=== PATIENT | male | born 1965 | race Caucasian/White ===

== ENCOUNTER → 2019-12-08 09:20 | Outpatient (BNVA) | payer OTHER, SELFPAY | PROVIDERS: PCP Nurse Practitioner Family; Referring Provider Nurse Practitioner Family; Visit Provider Nurse Practitioner Family | DX: G47.33 Obstructive sleep apnea (adult) (pediatric) (principal) | CPT/HCPCS: 99214 ==

== ENCOUNTER 2019-12-22 16:09 | Emergency (ER) | payer OTHER, SELFPAY ==
--- NOTE | 2019-12-22 | ECG_ITS ---
Test Reason : CHEST PAIN Blood Pressure : / mmHG Vent. Rate : 098 BPM Atrial Rate : 098 BPM P-R Int : 130 ms QRS Dur : 084 ms QT Int : 356 ms P-R-T Axes : 027 040 026 degrees QTc Int : 454 ms Normal sinus rhythm RSR' or QR pattern in V1 suggests right ventricular conduction delay Nonspecific ST and T wave abnormality Abnormal ECG When compared with ECG of 15-AUG-2018 11:02, T wave inversion more evident in Inferior leads ST more depressed Anterolateral leads Clinical Correlation Advised Referred By: Generic ED Physician Electronically Signed By:EDIN ENGEL MD
[2019-12-22 18:13] VITALS: BP 144/88; PULSE 77; RESP 16; TEMP 36.9; O2SAT 98; BMI 36.5
--- NOTE | 2019-12-22 18:59 | ED_ITS ---
HPI - Abdominal Pain General Chief Complaint: Chest Pain Stated Complaint: lower abd pain Time Seen by Provider: 12/22/19 18:56 Source: patient Mode of arrival: ambulatory Limitations: no limitations History of Present Illness HPI narrative: patient's history of kidney stone last stone was several years ago woke up at 03:00 with left lower quadrant pain stabbing in nature constant with intermittent flare up, associated with nausea no hematuria. No diarrhea no vomiting patient also complain of some midsternal pain earlier today which is similar in the past noncardiac. Patient denied any flank pain or problems in urinating MD elicited complaint: abdominal pain Pertinent past history: kidney stones Onset (ago): day(s) (1) Pain Consistency: constant Location: LLQ Severity: moderate Quality: stabbing Radiation: LLQ Migration to: no migration Exacerbating factors: nothing Relieving factors: nothing Associated symptoms: nausea Related Data Home Medications Medication Instructions Recorded Confirmed clotrimazole-betamethasone 1 applic TOPICAL Q OTHER DAY PRN 12/08/19 12/08/19 %-0.05 % topical cream docusate sodium 100 mg capsule 0 mg PO 12/08/19 12/08/19 famotidine 20 mg tablet 0 mg PO 12/08/19 12/08/19 gabapentin 300 mg capsule 900 mg PO TID PRN 12/08/19 12/08/19 hydrochlorothiazide 12.5 mg tablet 12.5 mg PO DAILY 12/08/19 12/08/19 ibuprofen 800 mg tablet 0 mg PO 12/08/19 12/08/19 lisinopril 40 mg tablet 40 mg PO DAILY 12/08/19 12/08/19 metformin 500 mg tablet 500 mg PO BID 12/08/19 12/08/19 pantoprazole 40 mg tablet,delayed 0 mg PO 12/08/19 12/08/19 release sucralfate 1 gram tablet 0 g PO 12/08/19 12/08/19 Previous Rx's Medication Instructions Recorded baclofen 10 mg tablet 10 mg PO TID 30 Days #210 tab 11/20/19 clonazepam 0.5 mg tablet 0.5 mg PO .COMPLEX 30 Days #60 tab 12/08/19 oxycodone 5 mg PO Q6H PRN #20 tab 12/22/19 Allergies Allergy/AdvReac Type Severity Reaction Status Date / Time sulfamethoxazole Allergy Mild rash Verified 12/08/19 09:55 [From Bactrim] trimethoprim [From Bactrim] Allergy Mild rash Verified 12/08/19 09:55 shellfish derived Allergy rash Verified 12/08/19 09:52 IV contrast Allergy Severe respiratory Uncoded 12/08/19 09:51 distress Review of Systems Review of Systems REVIEW OF SYSTEMS: Pertinent positives and negatives are stated above in the history. GEN: no fevers, chills, fatigue HEENT: no nasal congestion, sore throat, ear pain NEURO: no headache, dizziness, focal weakness PULM: no cough, shortness of breath CV: no palpitations, LE edema ABD: no vomiting, diarrhea : no dysuria, urgency, frequency SKIN: no rash ROS otherwise negative x 10 Physical Exam Vital Signs: Vital Signs: Vital Signs Temp Pulse Resp BP Pulse Ox 12/22/19 20:49 81 16 126/71 96 12/22/19 18:13 98.5 F 77 16 144/88 H 98 Body Mass Index 36.5 VITAL SIGNS: Reviewed. GENERAL: Well developed, well nourished, in mild distress. HEAD: Normocephalic/atraumatic, EYES: PERRLA No pallor/icterus noted EARS: Ext canals without abnormality NOSE: Nares patent bilateral OROPHARYNX: Oral mucosa moist no oral lesions NECK: Supple, no adenopathy LUNGS: Normal breath sounds. No adventitious sounds or accessory muscle use CARDIOVASCULAR: Regular rate and rhythm without noted murmurs, no JVD or lower extremity edema. ABDOMEN: Soft, moderate tenderness left lower quadrant, non-distended with bowel sounds. No rigidity. No guarding. No palpable masses or hernias noted MUSCULOSKELETAL: No tenderness, deformities, no CVA tenderness EXTREMITIES: No cyanosis or edema. SKIN: no rashes, ulcerations, jaundice, pallor, or petechiae NEUROLOGIC: Alert and oriented x 3. Strength and sensation to light touch were grossly intact Course Course Course Narrative: CT/CT abdomen pelvis wo con IMPRESSION: 1. A cause for the patient's left lower quadrant pain is not seen. 2. Abnormal left kidney with appearances suggestive of congenital UPJ obstruction. 3. Hepatic steatosis. 4. Incidentally noted left renal cyst, calcific atherosclerotic changes and postoperative changes at L5-S1. 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 otherwise labs urine negative etiology of pain is not very clear likely renal colic patient advised to follow-up with urologist and drink plenty of fluids MDM - Abdominal Pain Lab Data Result diagrams: 12/22/19 19:17 12/22/19 19:17 Labs: Lab Results 12/22/19 12/22/19 12/22/19 Range/Units 19:17 19:17 19:17 WBC 9.4 (4.8-10.8) X10*3/uL RBC 4.71 (4.60-5.80) X10*6/uL Hgb 12.5 L (14.0-18.0) g/dl Hct 40.2 L (42-52) % MCV 85.4 (80-98) fL MCH 26.5 L (27.0-33.0) pg MCHC 31.1 (31.0-36.0) g/dl RDW 14.3 (11.0-16.0) % Plt Count 281 (160-400) X10*3/uL MPV 9.8 (9.4-12.4) fL Immature Gran % (Auto) 0.7 H (0.0-0.4) % Neut % (Auto) 49.8 (45-73) % Lymph % (Auto) 41.6 H (20-40) % Brown % (Auto) 6.2 (2-11) % Eos % (Auto) 1.2 (0-4) % Baso % (Auto) 0.5 (0-2) % Lymph # (Auto) 3.9 (1.2-4.9) X10*3/uL Brown # (Auto) 0.6 (0.1-1.2) X10*3/uL Eos # (Auto) 0.1 (0.0-0.4) X10*3/uL Baso # (Auto) 0.1 (0.0-0.2) X10*3/uL Abs Immat Gran (auto) 0.07 H (0.00-0.03) X10*3/uL Absolute Neuts (auto) 4.7 (2.0-8.3) X10*3/uL Absolute Nucleated RBC 0.000 (0.0-0.012) X10*3/uL Nucleated RBC % (auto) 0.0 (0.0-0.2) /100WBC Sodium 138 (135-145) mmol/L Potassium 4.6 (3.3-5.1) mmol/l Chloride 96 (96-108) mmol/L Carbon Dioxide 30 H (22-29) mmol/L Anion Gap 17 (12-20) BUN 14 (9-16) mg/dL Creatinine 0.89 (0.5-1.4) mg/dL Estim Creat Clear Calc 116.1 Estimated GFR > 60 Random Glucose 115 (60-115) mg/dL Calcium 9.6 (8.4-10.2) mg/dL Total Bilirubin 0.5 (0.0-1.0) mg/dL Direct Bilirubin < 0.2 (0.0-0.5) mg/dL AST 22 (5-37) U/L ALT 35 (0-40) U/L Alkaline Phosphatase 95 (39-117) U/L Troponin I High Sens < 3.5 (<3.5-35.0) ng/L Total Protein 7.9 (6.5-8.0) g/dL Albumin 4.7 (3.5-5.0) g/dL Lipase 16 (8-78) U/L Urine Color Urine Appearance Urine pH (5.0-8.0) Ur Specific [place] (1.005-1.025) Urine Protein (NEG-TRACE) MG/DL Urine Glucose (UA) (NEG) MG/DL Urine Ketones (NEG) MG/DL Urine Blood (NEG) Urine Nitrite (NEG) Ur Leukocyte Esterase (NEG) 12/22/19 Range/Units 19:17 WBC (4.8-10.8) X10*3/uL RBC (4.60-5.80) X10*6/uL Hgb (14.0-18.0) g/dl Hct (42-52) % MCV (80-98) fL MCH (27.0-33.0) pg MCHC (31.0-36.0) g/dl RDW (11.0-16.0) % Plt Count (160-400) X10*3/uL MPV (9.4-12.4) fL Immature Gran % (Auto) (0.0-0.4) % Neut % (Auto) (45-73) % Lymph % (Auto) (20-40) % Brown % (Auto) (2-11) % Eos % (Auto) (0-4) % Baso % (Auto) (0-2) % Lymph # (Auto) (1.2-4.9) X10*3/uL Brown # (Auto) (0.1-1.2) X10*3/uL Eos # (Auto) (0.0-0.4) X10*3/uL Baso # (Auto) (0.0-0.2) X10*3/uL Abs Immat Gran (auto) (0.00-0.03) X10*3/uL Absolute Neuts (auto) (2.0-8.3) X10*3/uL Absolute Nucleated RBC (0.0-0.012) X10*3/uL Nucleated RBC % (auto) (0.0-0.2) /100WBC Sodium (135-145) mmol/L Potassium (3.3-5.1) mmol/l Chloride (96-108) mmol/L Carbon Dioxide (22-29) mmol/L Anion Gap (12-20) BUN (9-16) mg/dL Creatinine (0.5-1.4) mg/dL Estim Creat Clear Calc Estimated GFR Random Glucose (60-115) mg/dL Calcium (8.4-10.2) mg/dL Total Bilirubin (0.0-1.0) mg/dL Direct Bilirubin (0.0-0.5) mg/dL AST (5-37) U/L ALT (0-40) U/L Alkaline Phosphatase (39-117) U/L Troponin I High Sens (<3.5-35.0) ng/L Total Protein (6.5-8.0) g/dL Albumin (3.5-5.0) g/dL Lipase (8-78) U/L Urine Color YELLOW Urine Appearance CLEAR Urine pH 6.5 (5.0-8.0) Ur Specific [place] 1.020 (1.005-1.025) Urine Protein NEG (NEG-TRACE) MG/DL Urine Glucose (UA) NEG (NEG) MG/DL Urine Ketones NEG (NEG) MG/DL Urine Blood NEG (NEG) Urine Nitrite NEG (NEG) Ur Leukocyte Esterase NEG (NEG) Discharge Plan Discharge Clinical Impression: Renal colic on left side Patient Disposition: Home, Self-Care Instructions: Renal Colic (ED) Additional Instructions: drink plenty of fluids. Take pain medication as advised and follow-up with urologist do not see any stone at this time Prescriptions: New oxycodone 5 mg tablet 5 mg PO Q6H PRN (Reason: pain) Qty: 20 RF: 0 No Action baclofen 10 mg tablet 10 mg PO TID 30 Days Qty: 210 RF: 3 sucralfate 1 gram tablet 0 g PO RF: 0 hydrochlorothiazide 12.5 mg tablet 12.5 mg PO DAILY RF: 0 gabapentin 300 mg capsule 900 mg PO TID PRNRF: 0 docusate sodium 100 mg capsule 0 mg PO RF: 0 clotrimazole-betamethasone 1-0.05 % cream topical Q OTHER DAY PRNRF: 0 famotidine 20 mg tablet 0 mg PO RF: 0 metformin 500 mg tablet 500 mg PO BID RF: 0 pantoprazole 40 mg tablet,delayed release (DR/EC) 0 mg PO RF: 0 lisinopril 40 mg tablet 40 mg PO DAILY RF: 0 ibuprofen 800 mg tablet 0 mg PO RF: 0 clonazepam 0.5 mg tablet 0.5 mg PO .COMPLEX 30 Days Qty: 60 RF: 2 Referrals: Clinton Marcelo MD [Physician] - 1 week [facility] Social History Social History Advance Directives: No Advance Directives Information Provided: No
--- NOTE | 2019-12-22 19:12 | CT_ITS ---
EXAMINATION: CT ABDOMEN AND PELVIS WITHOUT CONTRAST CLINICAL INFORMATION: Left lower quadrant pain. COMPARISON: None TECHNIQUE: Multidetector volumetric imaging was performed from the superior aspect of the liver through the pubic symphysis. Sagittal and coronal reformatted images were obtained on the technologist's workstation. This CT examination was performed using dose optimization techniques as appropriate, variously including the following: *Automated exposure control. *Adjustment of mA and/or kV according to patient size (this includes techniques or standardized protocols for targeted exams where dose is matched to indication/reason for exam; i.e. extremities or head). *Use of iterative reconstruction technique. DLP: 877 mGy-cm FINDINGS: LUNG BASES: The visualized lung bases are unremarkable. LIVER, GALLBLADDER, AND BILIARY TREE: Hepatic steatosis is present with some focal fatty sparing around the gallbladder. No focal liver mass or bile duct dilatation is seen. The gallbladder is unremarkable with no evidence of radiopaque gallstones, gallbladder wall thickening, or obvious pericholecystic inflammatory changes. PANCREAS: Unremarkable. SPLEEN: A splenule is present. ADRENAL GLANDS: Unremarkable. KIDNEYS AND URETERS: Right: The right kidney and ureter appear normal. Left: The left renal pelvis is dilated and there is some mild caliectasis with narrowing at the ureteropelvic junction. Findings are fairly characteristic of a congenital UP junction-type of obstruction. Hypoattenuating 1.5 cm left midpole renal cortical mass is seen which measures just under water density and is most likely a cyst. No solid renal masses are seen. Left ureter is normal. BLADDER: Empty. GASTROINTESTINAL TRACT: The small and large bowel are unremarkable. The appendix is unremarkable. ABDOMINAL WALL: No significant hernia is appreciated. LYMPH NODES: Normal. VASCULAR: Aortoiliac calcific atherosclerotic changes are present. No aneurysms. PELVIC VISCERA: Prostate and seminal vesicles appear normal. OSSEOUS STRUCTURES: Degenerative changes are present in the spine. There has been posterior fusion with pedicular screws at L5-S1. No bony destructive lesions seen. CT/CT abdomen pelvis wo con IMPRESSION: 1. A cause for the patient's left lower quadrant pain is not seen. 2. Abnormal left kidney with appearances suggestive of congenital UPJ obstruction. 3. Hepatic steatosis. 4. Incidentally noted left renal cyst, calcific atherosclerotic changes and postoperative changes at L5-S1.
[2019-12-22] MEDS: 0.9 % Sodium Chloride 1,000 ML 999 ML IVCONT (19:19)
[2019-12-22 19:31] LABS: Basophils Absolute Auto 0.1 X10*3/uL (0.0-0.2); Basophils Percent Auto 0.5 % (0-2); Eosinophils Absolute Auto 0.1 X10*3/uL (0.0-0.4); Eosinophils Percent Auto 1.2 % (0-4); Hematocrit 40.2 % (42-52); Hemoglobin 12.5 g/dl (14.0-18.0); Imm Gran Abs Auto 0.07 X10*3/uL (0.00-0.03); Imm Gran Pct Auto 0.7 % (0.0-0.4); Lymphocytes Absolute Auto 3.9 X10*3/uL (1.2-4.9); Lymphocytes Percent Auto 41.6 % (20-40); MANUAL DIFF FLAG NO; Mean Corpuscular HGB Conc 31.1 g/dl (31.0-36.0); Mean Corpuscular Hemoglobin 26.5 pg (27.0-33.0); Mean Corpuscular Volume 85.4 fL (80-98); Mean Platelet Volume 9.8 fL (9.4-12.4); Monocytes Absolute Auto 0.6 X10*3/uL (0.1-1.2); Monocytes Percent Auto 6.2 % (2-11); Neutrophils Absolute Auto 4.7 X10*3/uL (2.0-8.3); Neutrophils Percent Auto 49.8 % (45-73); Platelet Count 281 X10*3/uL (160-400); Red Blood Count 4.71 X10*6/uL (4.60-5.80); Red Cell Distribution Width 14.3 % (11.0-16.0); White Blood Count 9.4 X10*3/uL (4.8-10.8)
[2019-12-22 19:38] LABS: Glucose Urine UA NEG (NEG); Leukocyte Esterase Urine NEG (NEG); Nitrite Urine NEG (NEG); PH 6.5 (5.0-8.0); Urine Blood NEG (NEG); Urine Ketones NEG (NEG); Urine Protein NEG (NEG-TRACE)
[2019-12-22 19:43] LABS: Appearance Urine CLEAR; Color Urine YELLOW
[2019-12-22 20:01] LABS: Alanine Aminotransferase 35 U/L (0-40); Albumin Level 4.7 g/dL (3.5-5.0); Alkaline Phosphatase 95 U/L (39-117); Anion Gap 17 (12-20); Aspartate Amino Transferase 22 U/L (5-37); Bilirubin Direct < 0.2 mg/dL (0.0-0.5); Bilirubin Total 0.5 mg/dL (0.0-1.0); Blood Urea Nitrogen 14 mg/dL (9-16); Calcium 9.6 mg/dL (8.4-10.2); Carbon Dioxide 30 mmol/L (22-29); Chloride 96 mmol/L (96-108); Creatinine Clr Calc Pharmacy 116.1; Estimated Glomerular Filt Rate > 60; Glucose Random 115 mg/dL (60-115); Lipase 16 U/L (8-78); Potassium 4.6 mmol/l (3.3-5.1); Sodium 138 mmol/L (135-145); Total Protein 7.9 g/dL (6.5-8.0)
[2019-12-22 20:07] LABS: Troponin-I High Sensitivity < 3.5 ng/L (<3.5-35.0)
[2019-12-22] MEDS: Ketorolac Tromethamine 30 MG/ML VIAL IVPUSH (20:44)
[2019-12-22 20:49] VITALS: BP 126/71; PULSE 81; RESP 16; O2SAT 96
[2019-12-22 20:59] VITALS: BP 126/71; PULSE 77; RESP 16; TEMP 36.4; O2SAT 99
== END 2019-12-22 21:16 | disposition home or self-care (01) ==
PROVIDERS: Emergency Provider Internal Medicine; PCP Internal Medicine
DX: N23 Unspecified renal colic (principal); R07.9 Chest pain, unspecified; Z79.899 Other long term (current) drug therapy
CPT/HCPCS: 36415; 74176; 80048; 80076; 81003; 83690; 84484; 85025; 93005; 96361; 96374; 99283; 99284; J1885

== ENCOUNTER → 2020-03-01 09:32 | Outpatient (BNVA) | payer MEDICARE, MEDICAID, SELFPAY | PROVIDERS: PCP Internal Medicine; Visit Provider Nurse Practitioner Family | DX: Z76.89 Persons encountering health services in other specified circumstances (principal) | CPT/HCPCS: Q3014 ==

== ENCOUNTER → 2020-05-31 10:12 | Outpatient (BNVA) | payer MEDICARE, OTHER, SELFPAY | PROVIDERS: PCP Internal Medicine; Visit Provider Nurse Practitioner Family | DX: Z13.89 Encounter for screening for other disorder (principal) | CPT/HCPCS: Q3014 ==

== ENCOUNTER → 2020-09-27 08:44 | Outpatient (BNVA) | payer OTHER, SELFPAY | PROVIDERS: PCP Internal Medicine; Visit Provider Nurse Practitioner Family | DX: G47.33 Obstructive sleep apnea (adult) (pediatric) (principal); G47.00 Insomnia, unspecified | CPT/HCPCS: Q3014 ==

== ENCOUNTER → 2021-01-31 09:09 | Outpatient (BNVA) | payer OTHER, SELFPAY | PROVIDERS: PCP Internal Medicine; Referring Provider Internal Medicine; Visit Provider Nurse Practitioner Family | DX: G47.33 Obstructive sleep apnea (adult) (pediatric) (principal); G47.00 Insomnia, unspecified | CPT/HCPCS: Q3014 ==

== ENCOUNTER → 2021-06-19 08:55 | Outpatient (BNVA) | payer OTHER, SELFPAY | PROVIDERS: PCP Internal Medicine; Visit Provider Nurse Practitioner Family | DX: Z13.89 Encounter for screening for other disorder (principal) ==

== ENCOUNTER 2021-09-12 11:37 | Outpatient (REF) | payer OTHER, SELFPAY ==
[2021-09-12 11:51] LABS: MANUAL DIFF FLAG NO
[2021-09-12 12:25] LABS: Basophils Percent Auto 0.5 % (0-2); Eosinophils Absolute Auto 0.1 X10*3/uL (0.0-0.4); Eosinophils Percent Auto 0.8 % (0-4); Hematocrit 37.9 % (42.0-52.0); Hemoglobin 12.4 g/dl (14.0-18.0); Imm Gran Abs Auto 0.07 X10*3/uL (0.00-0.03); Imm Gran Pct Auto 0.8 % (0.0-0.4); Lymphocytes Absolute Auto 2.6 X10*3/uL (1.2-4.9); Lymphocytes Percent Auto 30.1 % (20-40); Mean Corpuscular HGB Conc 32.7 g/dl (31.0-36.0); Mean Corpuscular Hemoglobin 27.6 pg (27.0-33.0); Mean Corpuscular Volume 84.4 fL (80.0-98.0); Mean Platelet Volume 10.4 fL (9.4-12.4); Monocytes Absolute Auto 0.5 X10*3/uL (0.1-1.2); Monocytes Percent Auto 5.9 % (2-11); Neutrophils Absolute Auto 5.4 x10*3/uL (2.0-8.3); Neutrophils Percent Auto 61.9 % (45-73); Platelet Count 314 X10*3/uL (160-400); Red Blood Count 4.49 X10*6/uL (4.60-5.80); Red Cell Distribution Width 13.7 % (11.0-16.0); White Blood Count 8.7 X10*3/uL (4.8-10.8)
[2021-09-12 13:20] LABS: Anion Gap 19 (12-20); Blood Urea Nitrogen 22 mg/dL (9-16); Calcium 10.3 mg/dL (8.4-10.2); Carbon Dioxide 26 mmol/L (22-29); Chloride 96 mmol/L (96-108); Estimated Glomerular Filt Rate 53; Glucose Random 441 mg/dL (60-115); Potassium 5.7 mmol/L (3.3-5.1); Sodium 135 mmol/L (135-145)
[2021-09-12 15:43] LABS: Estimated Average Glucose 329 mg/dL; Hemoglobin A1c % 13.1 %
[2021-09-12 15:59] LABS: Creatinine Urine 60.45 mg/dL; Microalbum/Creatinine Ratio Ur 23.1 ug/mg cr
== END 2021-09-12 11:38 | disposition home or self-care (01) ==
LOC: HO.LAB 11:37
PROVIDERS: PCP Internal Medicine; Visit Provider Internal Medicine
DX: Z13.0 Encounter for screening for diseases of the blood and blood-forming organs and certain disorders involving the immune mechanism (principal); E03.9 Hypothyroidism, unspecified; E11.69 Type 2 diabetes mellitus with other specified complication; E66.01 Morbid (severe) obesity due to excess calories; R51.9 Headache, unspecified
CPT/HCPCS: 36415; 80048; 82043; 83036; 84443; 85025

== ENCOUNTER → 2021-11-07 09:00 | Outpatient (BNVA) | payer OTHER, SELFPAY | PROVIDERS: PCP Internal Medicine; Visit Provider Dietitian, Registered | DX: E11.69 Type 2 diabetes mellitus with other specified complication (principal); E66.9 Obesity, unspecified; Z68.33 Body mass index [BMI] 33.0-33.9, adult | CPT/HCPCS: 97802 ==

== ENCOUNTER 2022-11-23 08:32 | Outpatient (AMB) | payer OTHER, SELFPAY ==
--- NOTE | 2022-11-23 08:34 | MHC.OFFVIS ---
Intake Vital Signs 11/23/22 08:52 Height 5 ft 8 in Weight 190 lb BMI 28.9 BP 140/80 H Blood Pressure Location Lt brachial Position Sitting Respiration 16 Pulse 96 Pulse Source Pulse Oximeter Pulse Oximetry (%) 98 Oxygen Delivery Method Room Air Intake Visit Reasons: dorsalgia Allergies sulfamethoxazole [From Bactrim] Allergy (Mild, Verified 11/23/22 08:36) rash trimethoprim [From Bactrim] Allergy (Mild, Verified 11/23/22 08:36) rash Sulfa (Sulfonamide Antibiotics) Allergy (Unknown, Verified 11/23/22 08:36) unknown shellfish derived Allergy (Verified 11/23/22 08:36) rash IV contrast Allergy (Severe, Uncoded 12/22/21 08:45) respiratory distress Codeine Phosphate Allergy (Unknown, Uncoded 12/22/21 08:45) unknown IV contrast Dye Allergy (Unknown, Uncoded 12/22/21 08:45) unknown HPI HPI Comments History of Present Illness Details Raffy is a very pleasant 57 year old male who present to the office today for evaluation and management of his chronic back pain. Patient reports that he has been suffering with pain in the back for greater than 10 years. He has hx of lumbar fusion performed in [place], he is closely followed by neurosurgeon and was told he will need a second fusion but has not been scheduled. Patient reports that he has been under the care of a pain management doctor who prescribed him mag ox and keppra for muscle twitching, he is also taking topiramate that was prescribed by neurology at [facility]. Patient states his pain management doctor has left the practice, he contacted his PCP to take over prescribing his keppra, topiramate and mag ox but was told he needs to have a landscape painter take this over. Patient has received multiple injections in his back previously by multiple specialists. He found them painful at times and of no benefit of pain relief. I will deal with the pain until I have surgery again . He is not interested in interventional management at this time. Patient reports I came here because my primary told me pain management needs to take over prescribing these medications . [facility] Surgical History No pertinent past surgical history Family History Other No pertinent family history Social History (Reviewed 12/22/21 @ 08:43 by GILA [place] Housing: Condominium Patient Tobacco Use Status: Never used Tobacco e-Cigarette/Vaping Use: Never Used Second Hand Smoke Exposure: No service: No Current occupational status: employed Cognitive needs: Yes ([employer]) Hearing needs: No Vision needs: No Review of Systems Const All systems reviewed & are unremarkable except as noted in HPI and below Physical Exam Vital Signs: Last Vital Signs Pulse 96 11/23/22 08:52 Resp 16 11/23/22 08:52 BP 140/80 H 11/23/22 08:52 Pulse Ox 98 11/23/22 08:52 Oxygen Delivery Method Room Air 11/23/22 08:52 BMI result Body Mass Index 28.9 General: awake, alert, oriented. Answers questions appropriately. Fully engaged in examination. Skin: warm, dry, intact HEENT: Normocephalic. Hearing intact. Cardiac: External chest normal in appearance. Respiratory: No cough, audible wheezing or stridor. Abdomen: without gross distension. MS: No obvious swelling or deformities. Able to transition from sit to stand unassisted. Ambulates with use of a cane Neurological: Oriented to person, place, time and situation. Thought process intact. Psychiatric: Appropriate mood and affect. Good judgment and insight. Assessment & Plan Assessment & Plan (1) Chronic back pain: Code(s): M54.9 - Dorsalgia, unspecified; G89.29 - Other chronic pain (2) Post laminectomy syndrome: Code(s): M96.1 - Postlaminectomy syndrome, not elsewhere classified (3) Migraine: Code(s): G43.909 - Migraine, unspecified, not intractable, without status migrainosus Plan Raffy is a very pleasant 57 year old male who presented today requesting our office take over prescribing his keppra, topamax and mag oxide. He suffers from chronic back pain and post laminectomy syndrome but adamantly declines interventional treatment at this time. Lengthy discussion with patient regarding current request for refills of his medications. Patient reports Topamax was prescribed by neurology at [facility], he was advised to schedule an appt with their office for follow up and to obtain refills of this medication. Keppra should also be managed by specialty office that focuses on antiseizure medication, which is not pain management, discuss with neurology at follow up visit. Patient verbalizes understanding and agrees with plan. He will follow up with neurology. He was advised to contact our office to schedule a follow up if he would like to proceed with interventional management of his back pain. Coding Level of Care Code New Pt Level 4 (90762) Diagnoses Chronic back pain M54.9; G89.29 Post laminectomy syndrome M96.1 Migraine G43.909
[2022-11-23 08:52] VITALS: BP 140/80; PULSE 96; RESP 16; O2SAT 98; BMI 28.9
== END 2022-11-23 09:20 | disposition home or self-care (01) ==
PROVIDERS: PCP Internal Medicine; Visit Provider Registered Nurse Emergency
DX: M54.9 Dorsalgia, unspecified (principal); G89.29 Other chronic pain; M96.1 Postlaminectomy syndrome, not elsewhere classified; G43.909 Migraine, unspecified, not intractable, without status migrainosus
CPT/HCPCS: 99203

== ENCOUNTER → 2022-11-23 08:32 | Outpatient (BNVA) | payer OTHER, SELFPAY | PROVIDERS: PCP Internal Medicine; Visit Provider Registered Nurse Emergency ==

== ENCOUNTER 2024-01-01 08:48 | Outpatient (AMB) | payer OTHER, SELFPAY ==
[2024-01-01 08:50] VITALS: BP 130/72; PULSE 80; O2SAT 97; BMI 29.5
--- NOTE | 2024-01-01 08:50 | MHC.PC.OV ---
Vital Signs 01/01/24 08:50 Height 5 ft 8 in Weight 194 lb BMI 29.5 BP 130/72 Blood Pressure Location Lt brachial Position Sitting Pulse 80 Pulse Source Pulse Oximeter Pulse Oximetry (%) 97 Oxygen Delivery Method Room Air Intake Visit Reasons: DM Exceptional Children Teacher Required: No Accompanied by: Self / Same As Patient Allergies sulfamethoxazole [From Bactrim] Allergy (Mild, Verified 01/01/24 08:56) rash trimethoprim [From Bactrim] Allergy (Mild, Verified 01/01/24 08:56) rash Sulfa (Sulfonamide Antibiotics) Allergy (Unknown, Verified 01/01/24 08:56) unknown shellfish derived Allergy (Verified 01/01/24 08:56) rash IV contrast Allergy (Severe, Uncoded 01/01/24 08:56) respiratory distress Codeine Phosphate Allergy (Unknown, Uncoded 01/01/24 08:56) unknown IV contrast Dye Allergy (Unknown, Uncoded 01/01/24 08:56) unknown Medication List - Last Reconciled 01/02/24 by Roel Dozier MD acetaminophen 650 mg (2 x 325 mg) PO Q6H PRN atorvastatin 20 mg PO DAILY back brace As directed [back support pillow As directed] baclofen 10 mg PO 7 times a day; blood sugar diagnostic (ROVOP Blood Glucose System strips) As directed blood sugar diagnostic (ROVOP TALK test strips) USE DIRECTED UP TO 8 TIMES A DAY bupropion HCl XL 300 mg PO QAM dapagliflozin propanediol (Farxiga) 10 mg PO DAILY [Diabetic shoes As directed] docusate sodium 200 mg (2 x 100 mg) PO BID 90 days famotidine 20 mg PO DAILY flash glucose scanning reader (FreeStyle Kizzy 2 [place]) As directed flash glucose sensor (FreeStyle Kizzy 2 Sensor kit) As directed gabapentin 900 mg (3 x 300 mg) PO TID PRN ibuprofen 400 mg PO Q6H PRN lancets (ROVOP Safety Lancet) As directed levetiracetam 250 mg PO BID lisinopril 20 mg PO DAILY magnesium oxide 400 mg PO DAILY methadone 110 mg PO BID miscellaneous medical supply 1 ea miscellaneous .five times a day [neck support pillow As directed] pantoprazole 40 mg PO DAILY sucralfate 1 g PO BID tadalafil (Cialis) 10 mg PO DAILY PRN tirzepatide (Mounjaro) mg subcut topiramate 50 mg PO DAILY Tobacco use date assessed: 01/01/24 Dental Screening Dental Screen Date: 01/01/24 Did you have a dental visit in the last 12 months?: Yes Did you have a dental problem in the last 6 months where you did not have access to dental care?: No Was dental information given to patient?: Patient has dentist HPI DM HPI Details DM in good control; sees endo in [place] [facility] Surgical History No pertinent past surgical history Family History Other No pertinent family history [facility] Patient Tobacco Use Status: Never used Tobacco Tobacco use type: Cigarette e-Cigarette/Vaping Use: Never Used Second Hand Smoke Exposure: No service: No Current occupational status: employed Cognitive needs: Yes ([employer]) Hearing needs: No Vision needs: No Questionnaire PHQ-9 Over the last 2 weeks, how often have you been bothered by any of the following problems? 1. Little interest or pleasure in doing things: not at all 2. Feeling down, depressed, or hopeless: not at all 3. Trouble falling or staying asleep, or sleeping too much: not at all 4. Feeling tired or having little energy: not at all 5. Poor appetite or overeating: not at all 6. Feeling bad about yourself - or that you are a failure or have let yourself or your family down: not at all 7. Trouble concentrating on things, such as reading the newspaper or watching television: not at all 8. Moving or speaking so slowly that other people could have noticed. Or the opposite - being so fidgety or restless that you have been moving around a lot more than usual: not at all 9. Thoughts that you would be better off or of hurting yourself in some way: not at all Total score: 0 Depression Screening Interpretation: Negative Depression Screening Done: Yes 23258 - PHQ-9 Billing: Yes Source: Developed by Drs. Dillon Bergeron, Elizabeth Guillen, Hussein Stack and colleagues, with an educational sixto from [employer]. Thrive Questionnaire Date Thrive assessed: 01/01/24 I am a: Patient What is your living situation today?: I have a steady place to live THRIVE Score: 0 AUDIT C Alcohol Use Questionnaire (AUDIT-C) 1. How often do you have a drink containing alcohol?: Never 3. How often do you have six or more drinks on one occasion?: Never Total Score: 0 UDAY-7 AMB Questionnaire UDAY-7 Date UDAY - 7 assessed: 01/01/24 Feeling nervous, anxious, or on edge: 0 = Not at all Not being able to stop or control worryin = Not at all Worrying too much about different things: 0 = Not at all Trouble relaxin = Not at all Being so restless that it is hard to sit still: 0 = Not at all Becoming easily annoyed or irritable: 0 = Not at all Feeling afraid as if something awful might happen: 0 = Not at all Total UDAY-7 score (0-4 normal; 5-9 mild; 10-14 moderate; 15-21 severe): 0 Source: Developed by Drs. Dillon Bergeron, Elizabeth Guillen, Hussein Stack and colleagues, with an educational sixto from [employer]. UDAY-7 Assessment Billing UDAY-7 Assessment Tool: UDAY-7 Assessment 04845 Review of Systems Const Denies chills, Denies headache(s) and Denies weight loss ENT Denies headache(s) Card Denies chest pain, Denies syncope, Denies irregular heart rhythm and Denies dyspnea Resp Denies chest congestion, Denies cough and Denies dyspnea GI Denies abdominal pain, Denies change in stool character, Denies nausea and Denies vomiting Musc Denies deformity and Denies joint swelling Neuro Denies syncope and Denies headache(s) Physical exam (Primary Care) Vital Signs: Last Vital Signs Pulse 80 01/01/24 08:50 BP 130/72 01/01/24 08:50 Pulse Ox 97 01/01/24 08:50 Oxygen Delivery Method Room Air 01/01/24 08:50 BMI result Body Mass Index 29.5 Tobacco/Smoking Status: Tobacco use Status Tobacco use date assessed 01/01/24 01/01/24 09:05 Patient Tobacco Use Status Never used Tobacco 01/01/24 08:51 Tobacco use type Cigarette 01/01/24 09:05 e-Cigarette/Vaping Use Never Used 01/01/24 08:51 PHQ-9: PHQ-9 Score PHQ-9: Total score 0 01/01/24 09:06 Depression Screening Interpretation: Negative Thrive Assessment: Date of Thrive Assessment Date Thrive assessed 01/01/24 01/01/24 09:05 Const General: cooperative, comfortable, no acute distress and alert Neck Neck: Yes no lymphadenopathy Thyroid: Thyroid normal Resp Effort & Inspection: normal respiratory effort Auscultation: clear to auscultation bilaterally Percussion: percussion normal Cardio Jugular venous distension: no JVD Palpation: normal PMI Rate: regular rate Rhythm: regular rhythm Heart sounds: S1 normal heart sound present and S2 normal heart sound present GI Inspection: Yes normal to inspection Palpation (GI): No hepatosplenomegaly present Skin General skin exam: no rashes or lesions noted Extrem General: Yes no clubbing, cyanosis or edema Results AMB Hemoglobin A1c AMB Hemoglobin A1c 6.1 % Last Edit by Debra Miner CMA on 01/01/24 09:07 Results Reviewed Results Reviewed: Laboratory Last Values Hgb A1c (Clinic) 6.1 % (4.0-6.0) H 01/01/24 09:06 Coding Level of Care Code Est Pt Level 3 (50584) Diagnoses Type 2 diabetes mellitus with obesity E11.69; E66.9 Additional Codes UDAY-7 Assessment Billing - UDAY-7 Assessment Tool: UDAY-7 Assessment 90208 ([id number]) PHQ-9 - 98033 - PHQ-9 Billing: Yes ([id number]) Assessment & Plan Assessment & Plan (1) Type 2 diabetes mellitus with obesity: Code(s): E11.69 - Type 2 diabetes mellitus with other specified complication; E66.9 - Obesity, unspecified Category: Medical Plan: stable; as per endo Orders: Orders AMB Hemoglobin A1c 01/01/24 E11.69 - Type 2 diabetes mellitus with other specified complication, E66.9 - Obesity, unspecified
== END 2024-01-01 09:14 | disposition home or self-care (01) ==
PROVIDERS: PCP Internal Medicine; Visit Provider Internal Medicine
DX: E11.69 Type 2 diabetes mellitus with other specified complication (principal); E66.9 Obesity, unspecified; Z68.25 Body mass index [BMI] 25.0-25.9, adult

== ENCOUNTER → 2024-01-01 08:48 | Outpatient (BNVA) | payer OTHER, SELFPAY | PROVIDERS: PCP Internal Medicine; Visit Provider Internal Medicine | DX: E11.69 Type 2 diabetes mellitus with other specified complication (principal); E66.9 Obesity, unspecified | CPT/HCPCS: 83036; 96127; 99212 ==

== ENCOUNTER 2024-05-11 06:13 | Day surgery (SDC) | payer OTHER, SELFPAY ==
--- OUTSIDE RECORDS SUMMARY | 2024-04-03 13:59 | XMS_ITS | Clinical Summary ---
Author Organization [facility] Address [address] [place] [address] Phone Care Team Providers Care Insurance Agency Manager Name Role Phone Roel Dozier MD Primary Care Provider [phone] Allergies Active Allergy Reactions Criticality Noted Date Comments Codeine 06/28/2023 Iodinated Contrast Media 06/28/2023 Other 06/28/2023 Shellfish Allergy 06/28/2023 Sulfamethoxazole-Trimethoprim 2023 Active Problems Problem Noted Date Diagnosed Date Type 2 diabetes mellitus 06/28/2023 Opioid dependence 06/28/2023 Obese class I 06/28/2023 Migraine 06/28/2023 Hypertensive disorder 06/28/2023 History of calculus of kidney 06/28/2023 Gastritis 06/28/2023 Depressive disorder 06/28/2023 Social History Tobacco Use Types Packs/Day Years Used Date Smoking Tobacco: Never Assessed Sex and Gender Information Value Date Recorded Sex Assigned at Not on file Legal Sex Male 5:04 PM EST Gender Identity Not on file Sexual Orientation Not on file Plan of Treatment Health Maintenance Due Date Last Done Comments Hepatitis B Vaccine (1 of 3 - 19+ 3-dose series) 10/16/1986 Colorectal Cancer Screening: Annual FOBT 10/16/2016 Colorectal Cancer Screening: Colonoscopy 10/16/2016 Colorectal Cancer Screening: Sigmoidoscopy 10/16/2016 Diabetes: Hemoglobin A1C 06/24/2023 Diabetes: Ophthalmology Exam 06/24/2023 Diabetes: Pedal Pulse Checked 06/24/2023 Diabetes: Sensory Foot Exam 06/24/2023 Diabetes: Visual Foot Exam 06/24/2023 Influenza Vaccine (#1) 2023 Pneumococcal Vaccine: Pediat rics (0 to 5 Years) and At-Risk Patients (6 to 64 Years) Aged Out No longer eligible b ased on patient's age to complete this topic Insurance [facility] ([id number]) [facility] ([id number]) Care Teams Insurance Agency Manager Relationship Specialty Start Date End Date Roel Dozier MD [address] [place] [address] PCP - General Internal Medicine 08/18/21
--- OUTSIDE RECORDS SUMMARY | 2024-04-03 14:00 | XMS_ITS ---
Author Organization [facility] Address [address] [place] [address] Care Team Providers Care Spice Blender Name Role Phone Roel Dozier MD Primary Care Provider Dillon Howe Unavailable [phone] ALLERGIES Allergen (clinical drug ingredient) Drug/Non Drug Allergy documented on EMR Reaction Allergy Type Onset Date Status codeine Codeine Unknown Drug Allergy Active sulfamethoxazole / trimethoprim Bactrim Unknown Drug Allergy Active IVP DYE (uncoded) Unknown Allergy Ac tive REASON FOR VISIT Patient presents today for a COLON SCREENING MEDICATIONS Medication SIG (Take, Route, Frequency, Duration) Notes Start Date End Date Status Magnesium Oxide -Mg Supplement 400 (240 Mg) MG Oral for 60 Active Topiramate 50 MG Oral for 30 A ctive levETIRAcetam 250 MG Oral for 30 Active Sucralfate 1 GM 1 tablet on an empty stomach Oral Twice a day Active buPROPion HCl ER (XL) 300 MG Oral for 90 Active Mounjaro 5 MG/0.5ML Subcutaneous for 28 Active Methadone HCl 10 MG 10tablets Orally claudia ry 12 hrs back pain Active Docusate Sodium 100 MG Oral for 90 Active Farxiga 10 MG Oral for 30 Acti ve Famotidine 20 MG Oral for 30 prn A ctive Lisinopril 20 MG Oral for 30 A ctive Atorvastatin Calcium 20 MG Oral for 30 Active Baclofen 10 MG Oral for 30 Act nestor Acetaminophen 325 MG Oral for 14 Active Pantoprazole Sodium 40 MG Oral for 30 Active Gabapentin 300 MG Oral for 90 Active SOCIAL HISTORY Tobacco Use: Social History Observation Description Date Details (start date - stop date) Never Smoker NA - NA Sex Assigned At : Social History Observation Description Sex Assigned At Unknown Tobacco Use/Smoking Question Answer Notes Patient is a nonsmoker Alcohol Screen Question Answer Notes Did you have a drink containing alcohol in the p ast year? No Points 0 Interpretation Negative PROBLEMS Problem Type ICD Code Onset Dates Problem Status W/U Status Risk SNOMED Code Notes Problem Abdominal pain, generalized (R10.84) Active confirmed Generalized abdominal pain (075031174) Problem Colon cancer screening (Z12.11) Active confirmed Colon cancer screening (152235485) Problem Family history of colon cancer (Z80.0) Active confirmed Family History of Cancer of Colon (Situation) (334785814) VITAL SIGNS BMI 29.19 kg/m2 01/09/2024 Blood pressure systolic 00 mm Hg 01/09/20 24 Blood pressure diastolic 00 mm Hg 024 Height 5 ft 8 in in 01/09/2024 Weight 192 lbs 01/09/2024 Encounters Encounter Location Date Provider Diagnosis [facility] [address] [facility] [address] [place] [phone] 01/09/2024 Dillon Vergara Abdominal pain, generalized R10.84 ; Colon cancer screening Z12.11 and Family history of colon cancer Z80.0 ASSESSMENTS Encounter Date Diagnosis Assessment Notes Treatment Notes Treatment Clinical Notes 01/09/2024 Abdominal pain, generalized (ICD-10 - R10.84) 01/09/2024 Colon cancer screening (ICD-10 - Z12.11) DO NOT USE MOUNJARO FOR AT LEAST 7 DAYS BEFORE THE PROCEDURES DO NOT TAKE THE FARXIGA FOR AT LEAST THREE DAYS BEFORE THE PROCEDURES DO NOT TAKE THE SUCRALFATE THE DAY BEFORE THE PROCEDURES 01/09/2024 Family history of colon cancer (ICD-10 - Z80.0) PLAN OF TREATMENT Treatment Notes Assessment Notes Colon cancer screening DO NOT USE MOUNJARO FOR AT LEAST 7 DAYS BEFORE THE PROCEDURES DO NOT TAKE THE FARXIGA FOR AT LEAST THREE DAYS BEFORE THE PROCEDURES DO NOT TAKE THE SUCRALFATE THE DAY BEFORE THE PROCEDURES Future Test Test Name Order Date UPPER GI ENDOSCOPY 01/09/2024 COLONOSCOPY 01/09/2024 Next Appt Details Follow Up: prn, Reason: Provider Name:Dillon Hui Ursula , 05/11/2024 07:30:00 AM, [address] [place] [address] , [place], [place], [phone], Progress Notes * Examination Category Sub-Category Detail Notes General Examination GENERAL APPEARANCE: pleasant , well nourished, well developed, in no acute distress HEAD: EYES: sclera non-icteric EARS: NOSE: THROAT: NECK/THYROID: no cervical lymphade nopathy, neck supple HEART: S1, S2 normal CHEST: LUNGS: clear to auscultatio n bilaterally ABDOMEN: normal bowel sounds, no guarding or rigidity, no guarding or rigidity, no masses palpable, soft, nontender, nondistended NEUROLOGIC: alert and oriented SKIN: nonjaundiced, no spi jeancarlos angiomata EXTREMITIES: no edema PERIPHERAL PULSES: BACK: BREASTS: MUSCULOSKELETAL: MALE GENITOURINARY: LYMPH NODES: RECTAL EXAM: FEMALE GENITOURINARY: ORAL CAVITY: mucosa moist
--- OUTSIDE RECORDS SUMMARY | 2024-04-03 14:00 | XMS_ITS ---
Author Organization [facility] Address [address] [facility] [address] [place] [phone] Care Team Providers Care Glue Machine Operator Name Role Phone Roel Dozier MD Primary Care Provider Dillon Howe Unavailable [phone] REASON FOR VISIT send over prep MEDICATIONS Medication SIG (Take, Route, Frequency, Duration) Notes Start Date End Date Status Dulcolax (colon prep) 5 MG take at 3:00 p.m and 7:00p.m. Orally two tablets twice a day for one day for 1 day 01/14/2024 Active MiraLax (colon prep) 17 GM/SCOOP 1 238Gm bottle mixed with Gatorade or Crystal Light Orally begin at 5:00 p.m. the day before the procedure for 1 day 01/14/2024 Active Encounters Encounter Location Date Provider Diagnosis [facility] [address] [phone] 01/14/2024 Dillon Vergara PLAN OF TREATMENT Medication Medication Name Sig Start Date Stop Date Notes Dulcolax (colon prep) 5 MG take at 3:00 p.m and 7:00p.m. Orally two tablets twice a day for one day for 1 day 01/14/2024 MiraLax (colon prep) 17 GM/SCOOP 1 238Gm bottle mixed with Gatorade or Crystal Light Orally begin at 5:00 p.m. the day before the procedure for 1 day 01/14/2024 Next Appt Details Provider Name:Dillon Vergara , 05/11/2024 07:30:00 AM, [address] [place] [address] , [place], [place], [phone],
--- OUTSIDE RECORDS SUMMARY | 2024-04-03 14:00 | XMS_ITS ---
Author Organization [facility] Address [address] [place] [phone] Care Team Providers Care Hotel Breakfast Attendant Name Role Phone Roel Dozier MD Primary Care Provider Delmaa Dillon Donohue Unavailable [phone] REASON FOR VISIT bowel prep Encounters Encounter Location Date Provider Diagnosis [facility] [address] [place] [phone] 01/09/2024 Dillon Vergara PLAN OF TREATMENT Next Appt Details Provider Name:Dillon Vergara , 05/11/2024 07:30:00 AM, [address] [place] [address] , [place], [place], [phone],
--- OUTSIDE RECORDS SUMMARY | 2024-04-03 14:00 | XMS_ITS | Patient Health Record ---
Author Organization [facility] Address [address] [place] [phone] Care Team Providers Care Benefits Consulting Analyst Name Role Phone Roel Dozier MD Primary Care Provider Dillon Howe Unavailable [phone] ALLERGIES Allergen (clinical drug ingredient) Drug/Non Drug Allergy documented on EMR Reaction Allergy Type Onset Date Status codeine Codeine Unknown Drug Allergy Active sulfamethoxazole / trimethoprim Bactrim Unknown Drug Allergy Active IVP DYE (uncoded) Unknown Allergy Ac tive REASON FOR REFERRAL No Information MEDICATIONS Medication SIG (Take, Route, Frequency, Duration) Notes Start Date End Date Status Mounjaro 5 MG/0.5ML Subcutaneous for 28 Active Famotidine 20 MG Oral for 30 prn A ctive Methadone HCl 10 MG 10tablets Orally claudia ry 12 hrs back pain Active Lisinopril 20 MG Oral for 30 A ctive Atorvastatin Calcium 20 MG Oral for 30 Active Gabapentin 300 MG Oral for 90 Active levETIRAcetam 250 MG Oral for 30 Active Sucralfate 1 GM 1 tablet on an empty stomach Oral Twice a day Active Docusate Sodium 100 MG Oral for 90 Active buPROPion HCl ER (XL) 300 MG Oral for 90 Active Baclofen 10 MG Oral for 30 Act nestor Farxiga 10 MG Oral for 30 Acti ve Acetaminophen 325 MG Oral for 14 Active Dulcolax (colon prep) 5 MG take at 3:00 p.m and 7:00p.m. Orally two tablets twice a day for one day for 1 day 01/14/2024 Active Pantoprazole Sodium 40 MG Oral for 30 Active Magnesium Oxide -Mg Supplement 400 (240 Mg) MG Oral for 60 Active Topiramate 50 MG Oral for 30 A ctive MiraLax (colon prep) 17 GM/SCOOP 1 238Gm bottle mixed with Gatorade or Crystal Light Orally begin at 5:00 p.m. the day before the procedure for 1 day 01/14/2024 Active SOCIAL HISTORY Tobacco Use: Social History [...] generalized (R10.84) Active confirmed Generalized abdominal pain (005982437) Problem Colon cancer screening (Z12.11) Active confirmed Colon cancer screening (364981083) Problem Family history of colon cancer (Z80.0) Active confirmed Family History of Cancer of Colon (Situation) (357441165) VITAL SIGNS Blood pressure diastolic 00 mm Hg 01/09/2024 Height 5 ft 8 in in 01/09/2024 Blood pressure systolic 00 mm Hg 01/09/2024 Weight 192 lbs 01/09/2024 BMI 29.19 kg/m2 01/09/2024 Encounters Encounter Location Date Provider Diagnosis [facility] [address] [place] [phone] 09/05/2023 Dillon Vergara [facility] [address] [place] [phone] 01/09/2024 Dillon Vergara Abdominal pain, generalized R10.84 ; Colon cancer screening Z12.11 and Family history of colon cancer Z80.0 [facility] [address] [place] [phone] 09/04/2023 Dillon Vergara [facility] [address] [place] [phone] 01/09/2024 Dillon Vergara [facility] [address] [place] [phone] 01/14/2024 Dillon Vergara ASSESSMENTS Encounter Date Diagnosis Assessment Notes Treatment Notes Treatment Clinical Notes 01/09/2024 Colon cancer screening (ICD-10 - Z12.11) DO NOT USE MOUNJARO FOR AT LEAST 7 DAYS BEFORE THE PROCEDURES DO NOT TAKE THE FARXIGA FOR AT LEAST THREE DAYS BEFORE THE PROCEDURES DO NOT TAKE THE SUCRALFATE THE DAY BEFORE THE PROCEDURES 01/09/2024 Abdominal pain, generalized (ICD-10 - R10.84) 01/09/2024 Family history of colon cancer (ICD-10 - Z80.0) PLAN OF TREATMENT Future Test Test Name Order Date UPPER GI ENDOSCOPY 01/09/2024 COLONOSCOPY 01/09/2024 Next Appt Details Provider Name:Dillon Vergara , 05/11/2024 07:30:00 AM, [address] [place] [address] , [place], [place], [phone], Insurance Providers Payer Name Payer Address Payer Phone Subscriber Number Group Number Insured Name Patient Relationship to Insured Coverage Start Date Coverage End Date [facility] [address] [place] [address] [id number] [employer] Self - patient is the insured MED[place]ID OF [place] [address] [place] [address] [id number] [employer] Self - patient is the insured MEDICAL (GENERAL) HISTORY Medical History History ICD Code Kidney stones Hypertension Diabetes mellitus Reports a negative EGD and Colonoscopy i n 2018 in [place], [place] Denies ID,CVA,Lung disease,renal disease On Methadone for chronic fidelina k pain, but no history of substance abuse--[facility] Hyperlipidemia Chronic back pain Surgical History Surgery Date(Month/Year) UPJ obstruction Back surgery x 2
[2024-05-07 13:54] VITALS: BMI 29.2
--- NOTE | 2024-05-08 10:22 | HO.ANESPROP2 ---
Documented by User: Rhoda Guerrero NP 05/08/24 10:23 HPI - Anesthesia Eval Consult details Narrative: 58yo M for Upper Endoscopy and Colonoscopy Anesthesia Pre-Procedure Meds Is the patient on any of the following meds?: GLP1/DPP4 and SGLT2 Inhib PMFSH Active Problems Active Problems: All Active Problems Migraine (Chronic) Post laminectomy syndrome (Acute) Chronic back pain (Acute) Hypertension (Acute) Obesity (Acute) Type 2 diabetes mellitus with obesity (Acute) Insomnia (Acute) Mild obstructive sleep apnea (Acute) Abdominal pain in male (Acute) Obstructive sleep apnea hypopnea, mild (Acute) Past Medical History Medical History (Updated 05/07/24 @ 13:54 by Jackelin Enciso RN) Sleep apnea Diabetes HTN (hypertension) Post laminectomy syndrome Migraine Back pain Family History Family History Other No pertinent family history Surgical History Surgical History (Updated 05/07/24 @ 13:54 by Jackelin Enciso RN) History of extraction of renal calculus History of back surgery History of esophagogastroduodenoscopy (EGD) H/O colonoscopy Social History Social History Housing: Condominium Patient Tobacco Use Status: Former Tobacco user Tobacco use type: Cigarette e-Cigarette/Vaping Use: Never Used Second Hand Smoke Exposure: No Use of substances other than those prescribed or required for medical reasons: No Have you been hit, kicked, punched, or otherwise hurt by someone within the past year? If so, by whom?: No Are you DNR?: No Advance Directives: No Advance Directives Information Provided: Yes Advance Directives on File: No Recently lost weight without trying: No Eating poorly because of decreased appetite: No Nutrition Risks: No Nutritional Risk Poor oral hygiene: No service: No Current occupational status: employed Cognitive needs: Yes ([employer]) Hearing needs: No Vision needs: No Meds Allergies Allergy/AdvReac Type Severity Reaction Status Date / Time Iodinated Contrast Media Allergy Severe respiratory Verified 05/07/24 13:49 [IV Contrast Dye] distress shellfish derived Allergy Intermediate rash Verified 05/07/24 13:49 Sulfa (Sulfonamide Allergy Mild Rash Verified 05/07/24 13:49 Antibiotics) sulfamethoxazole Allergy Mild rash Verified 01/01/24 08:56 [From Bactrim] trimethoprim [From Bactrim] Allergy Mild rash Verified 01/01/24 08:56 codeine Allergy Unknown Unknown Verified 05/07/24 13:49 Home Medications ?Medication ?Instructions ?Recorded ?Confirmed ?Last Taken ?Type bupropion HCl 300 mg 24 hr tablet, 300 mg PO QAM 01/31/21 05/07/24 Unknown History extended release levetiracetam 250 mg tablet 250 mg PO BID 11/23/22 05/07/24 Unknown History magnesium oxide 400 mg (241.3 mg 400 mg PO DAILY 11/23/22 05/07/24 Unknown History magnesium) tablet atorvastatin 20 mg tablet 20 mg PO DAILY 01/01/24 05/07/24 Unknown History dapagliflozin propanediol 10 mg 10 mg PO DAILY 01/01/24 05/07/24 Unknown History tablet (Farxiga) tirzepatide 5 mg/0.5 mL 5 mg subcut QWEEK 01/01/24 05/07/24 Unknown History subcutaneous pen injector (Sherita) topiramate 50 mg tablet 50 mg PO DAILY 01/01/24 05/07/24 Unknown History methadone 10 mg/mL oral concentrate 110 mg PO BID 05/07/24 05/07/24 Unknown History Exam Height,Weight and Vital Signs: Height 5 ft 8 in Weight 87.09 kg Assessment and Plan Assessment Anesthesia Assessment: Chart Reviewed Documented by User: Lesvia Cooper MD 05/11/24 07:29 [facility] Past Medical History Medical History (Updated 05/07/24 @ 13:54 by Jackelin Enciso RN) Sleep apnea Diabetes HTN (hypertension) Post laminectomy syndrome Migraine Back pain Family History Family History Other No pertinent family history Family history of problems with anesthesia: No Surgical History Surgical History (Updated 05/07/24 @ 13:54 by Jackelin Enciso RN) History of extraction of renal calculus History of back surgery History of esophagogastroduodenoscopy (EGD) H/O colonoscopy History of Problems with Anesthesia: No Social History [facility] Tobacco Use Status: Former Tobacco user Tobacco use type: Cigarette e-Cigarette/Vaping Use: Never Used Second Hand Smoke Exposure: No Use of substances other than those prescribed or required for medical reasons: No Have you been hit, kicked, punched, or otherwise hurt by someone within the past year? If so, by whom?: No Are you DNR?: No Advance Directives: No Advance Directives Information Provided: Yes Advance Directives on File: No Recently lost weight without trying: No Eating poorly because of decreased appetite: No Nutrition Risks: No Nutritional Risk Poor oral hygiene: No service: No Current occupational status: employed Cognitive needs: Yes ([employer]) Hearing needs: No Vision needs: No Meds Allergies Allergy/AdvReac Type Severity Reaction Status Date / Time Iodinated Contrast Media Allergy Severe respiratory Verified 05/07/24 13:49 [IV Contrast Dye] distress shellfish derived Allergy Intermediate rash Verified 05/07/24 13:49 Sulfa (Sulfonamide Allergy Mild Rash Verified 05/07/24 13:49 Antibiotics) sulfamethoxazole Allergy Mild rash Verified 01/01/24 08:56 [From Bactrim] trimethoprim [From Bactrim] Allergy Mild rash Verified 01/01/24 08:56 codeine Allergy Unknown Unknown Verified 05/07/24 13:49 Home Medications ?Medication ?Instructions ?Recorded ?Confirmed ?Last Taken ?Type bupropion HCl 300 mg 24 hr tablet, 300 mg PO QAM 01/31/21 05/07/24 Unknown History extended release levetiracetam 250 mg tablet 250 mg PO BID 11/23/22 05/07/24 Unknown History magnesium oxide 400 mg (241.3 mg 400 mg PO DAILY 11/23/22 05/07/24 Unknown History magnesium) tablet atorvastatin 20 mg tablet 20 mg PO DAILY 01/01/24 05/07/24 Unknown History dapagliflozin propanediol 10 mg 10 mg PO DAILY 01/01/24 05/07/24 Unknown History tablet (Farxiga) tirzepatide 5 mg/0.5 mL 5 mg subcut QWEEK 01/01/24 05/07/24 Unknown History subcutaneous pen injector (Sherita) topiramate 50 mg tablet 50 mg PO DAILY 01/01/24 05/07/24 Unknown History methadone 10 mg/mL oral concentrate 110 mg PO BID 05/07/24 05/07/24 Unknown History Exam Airway Mallampati Class: III TM Dist: >3cm Denture: Upper Partial: Lower Assessment and Plan Assessment Anesthesia Assessment: Anesthesia Plan Discussed Final Anesthetic Review Family History of Problems with Anesthesia: No History of Problems with Anesthesia: No NPO: Yes ASA Class: III Final Preanesthetic Review: No Changes in Pt Med Stat, Meds/Allgs Chart Reviewed, Consent Obtained/Reviewed and Anes Risks/Benef Reviewed Patient Risk: Intermediate Procedure Risk: Low Anesthetic Plan Anesthetic Plan: TIVA Disposition: Standard PACU
[2024-05-11 06:29] VITALS: BMI 28.8
[2024-05-11 06:39] VITALS: BP 121/77; PULSE 80; RESP 16; TEMP 36.7; O2SAT 96
[2024-05-11] MEDS: Lactated Ringers 1,000 ML 100 ML IVCONT (06:48)
[2024-05-11 06:58] LABS: Glucose, Whole Blood 113 mg/dL (60-115)
[2024-05-11 08:33] VITALS: BP 96/55; PULSE 74; RESP 15; TEMP 36.9; O2SAT 97
--- NOTE | 2024-05-11 08:39 | P.BOP_ITS ---
Brief Operative Note Date of Service: 05/11/24 Pre-op diagnosis: Abdominal pain, Screening Post-op diagnosis: other (Mild chronic gastritis, Diverticulosis) Procedure: EGD with bx, Colonoscopy to the cecum Surgeon: Dillon Vergara MD Anesthesia: MAC Was an Manager Reimbursement used for this Procedure?: No Estimated blood loss (mL): 2.0 Pathology: other (A. Gastric antrum B. EG Junction at 39cm) Condition: stable Disposition: PACU
[2024-05-11 08:48] VITALS: BP 104/72; PULSE 73; RESP 16; TEMP 36.9; O2SAT 96
--- NOTE | 2024-05-11 10:35 | OP_ITS ---
DATE OF SERVICE: 05/11/2024 SURGEON: Dillon Vergara MD INDICATIONS: The patient presents for evaluation of intermittent abdominal discomfort, history of gastritis, colorectal cancer screening and family history of colon cancer. Full consent has been obtained from him for both procedures, including risks of bleeding and perforation. PREOPERATIVE DIAGNOSIS: POSTOPERATIVE DIAGNOSIS: PROCEDURE PERFORMED: Esophagogastroduodenoscopy with biopsies, and colonoscopy to the cecum. ESTIMATED BLOOD LOSS: COMPLICATIONS: ANESTHESIA: Monitored anesthesia care. ASSISTANTS: SPECIMENS: PREOPERATIVE DIAGNOSES: History of gastritis, abdominal discomfort, family history of colon cancer, and colorectal cancer screening. POSTOPERATIVE DIAGNOSES: History of gastritis, abdominal discomfort, family history of colon cancer, and colorectal cancer screening, mild chronic gastritis, small hiatal hernia and reflux, diverticulosis, and internal hemorrhoids. DESCRIPTION OF PROCEDURE: The patient was placed in the left lateral decubitus position. The Olympus video gastroscope was passed in the posterior oropharynx and upper esophagus under direct vision. The scope was passed slowly into the distal esophagus. The gastroesophageal junction appeared at 39 cm. There was some minimal irregularity but no evidence of esophagitis nor any definitive evidence of Larios mucosa. There was a small hiatal hernia. The scope was advanced to the pylorus and the duodenum was cannulated to the descending portion the duodenum including the bulb appeared normal without mass or ulceration. The scope was withdrawn back in the stomach. The gastric antrum and body had some mild changes of chronic gastritis with some pallor and erythema but no erosions or ulceration. There was good peristalsis. Biopsies were obtained from the antrum. The scope was retroflexed visualizing the proximal stomach carefully which appeared normal, without any sign of mass or ulceration. Scope was straightened and withdrawn back to the esophagus. Biopsies were obtained at the EG junction at 39 cm. Proximal to that, the esophageal mucosa appeared normal. The scope was withdrawn from the patient. He was turned around for colonoscopy. The digital rectal exam revealed no abnormalities. The Olympus video pediatric colonoscope was entered into the rectum and advanced easily to the cecum. Once in the cecum, I did identify normal-appearing cecal pouch with appendiceal orifice and a normal-appearing ileocecal valve. The entire cecum and ileocecal valve appeared normal. The scope was slowly withdrawn assessing all mucosal surfaces carefully. For the most part, preparation was very good throughout the colon, but did require some irrigation and suctioning. I did not visualize any sign of polyps, colitis, nor angiodysplasia. There was a very mild amount of sigmoid diverticulosis. In the rectum, scope was retroflexed visualizing some small internal hemorrhoids, but no other pathology. The rectal mucosa appeared normal. The scope was straightened and withdrawn from the patient. He tolerated the procedure well and was returned to the recovery area in stable condition. IMPRESSION: 1. Mild chronic gastritis. 2. Small hiatal hernia, gastroesophageal reflux. 3. Mild diverticulosis. 4. Internal hemorrhoids. PLAN: The results of biopsy will be checked. I would recommend a repeat colonoscopy in 5 years for further screening given the family history of colon cancer. He is presently using both pantoprazole and sucralfate. I advised him that he could stay on a daily pantoprazole but perhaps try to stop the sucralfate and see how he does without that. If things are stable, he will otherwise see me on a p.r.n. basis. MD DIANA Lester/SONDRA / [phone]
== END 2024-05-11 09:17 | disposition home or self-care (01) ==
PROVIDERS: PCP Internal Medicine; Visit Provider Internal Medicine
PROC: (CPT 43239; principal; 2024-05-11 07:30)
DX: Z12.11 Encounter for screening for malignant neoplasm of colon (principal); Z80.0 Family history of malignant neoplasm of digestive organs; K57.30 Diverticulosis of large intestine without perforation or abscess without bleeding; K64.8 Other hemorrhoids; R10.84 Generalized abdominal pain; K29.50 Unspecified chronic gastritis without bleeding; K21.9 Gastro-esophageal reflux disease without esophagitis; K44.9 Diaphragmatic hernia without obstruction or gangrene; G47.33 Obstructive sleep apnea (adult) (pediatric); I10 Essential (primary) hypertension; E78.5 Hyperlipidemia, unspecified; E11.9 Type 2 diabetes mellitus without complications; G47.30 Sleep apnea, unspecified; Z87.442 Personal history of urinary calculi; G89.29 Other chronic pain; M54.9 Dorsalgia, unspecified; M96.1 Postlaminectomy syndrome, not elsewhere classified; Z79.85 Long-term (current) use of injectable non-insulin antidiabetic drugs; Z79.899 Other long term (current) drug therapy; Z88.5 Allergy status to narcotic agent; Z91.041 Radiographic dye allergy status; Z79.891 Long term (current) use of opiate analgesic
CPT/HCPCS: 43239; G0105; 82947; 88305; 88313; 88342; J2003; J2704